=== PATIENT | male | born 1940 | race Caucasian/White ===

== ENCOUNTER 2016-08-10 07:32 | Observation (INO) | payer OTHER ==
[~2016-08-10] VITALS: Ht 182.9 cm; Wt 99.7 kg
[~2016-08-10 07:32] MED LIST: ADVAIR HFA120 INHALA IH; ALEVE PM CAPLE1 EACH PO; ALPRAZOLAM0.5 MG PO; AMLODIPINE BESYL5 MG PO; ASPIR-LOW81 MG PO; ASPIRIN81 M1 PO; ATORVASTATIN CA80 MG PO; Advair HFA 115/21 IH; CEFDINIR300 MG PO; CLOPIDOGREL75 MG PO; COLCRYS0.6 MG PO; Ceftin PO; Colchicine,Colcrys PO; DUONEB 2.5-0.5 M3 ML AEROSOL; DuoNeb IH; Ecotrin PO; FLONASE16 G1 BOTH NARES; FUROSEMIDE40 MG PO; LASIX40 MG PO; LEVAQUIN750 MG PO; LEVOFLOXACIN750 MG PO; LISINOPRIL40 MG PO; LO-DOSE ASPIRIN81 M1 PO; LOPRESSOR50 MG PO; Lasix PO; Lopressor PO; METOPROLOL TART50 MG PO; Micro-K,K-Tab,K-Dur, PO; NASAL SPRAY BOTH NARES; NORVASC10 MG PO; Omnicef PO; PHENERGAN-CODE120 ML PO; PREDNISONE PO; PREDNISONE10 MG PO; PREDNISONE20 MG PO; PREDNISONE50 MG PO; PROAIR HFA8.5 GM IH; Procardia XL,Adalat PO; Proventil,Ventolin H IH; Robitussin AC,Tussi- PO; SPIRIVA RESPIMAT4 GM IH; SPIRIVA1 INHALATI IH; SPIRONOLACTONE25 MG PO; Toprol XL PO; Ultram PO; VENTOLIN HFA18 GM IH; Xanax PO; ZESTRIL40 MG PO; ZITHROMAX Z-PA250 MG PO; ZITHROMAX250 MG PO; ZOLPIDEM TARTRAT5 MG PO; ZYLOPRIM100 MG PO; Zestril,Prinivil PO; Zithromax PO; predniSONE PO
[2016-08-10 08:18] LABS: HEMATOCRIT 37.2 % (38.0-50.0); MCH 28.6 PG (29.0-34.0); MCHC 31.7 G/DL (30.0-36.0); MCV 90.3 FL (86-99); MEAN PLAT.VOLUME 10.4 uM^3 (9.0-12.4); PLATELET COUNT 220 K/uL (156-360); RBC DIS.WIDTH-CV 16.6 % (11.8-14.6); RED BLOOD COUNT 4.12 M/uL (4.00-5.50); WHITE BLOOD COUNT 7.5 K/uL (4.1-10.2)
[2016-08-10 08:40] LABS: ANION GAP 12 MEQ/L (2-14); CHLORIDE 104 MEQ/L (99-109); EOSINOPHIL (%) 1.3 % (0-5); EOSINOPHIL COUNT 0.1 K/uL (0-0.3); IMMATURE GRANULOCYTE (%) 0.1 % (0.0-0.7); IMMATURE GRANULOCYTE COUNT 0.1 K/uL; LYMPHOCYTE COUNT 1.8 K/uL (1.0-2.8); MONOCYTE (%) 10.5 % (3-12); MONOCYTE COUNT 0.8 K/uL (0-0.8); NEUTROPHIL (%) 63.8 % (45-76); NEUTROPHIL COUNT 4.8 K/uL (1.8-6.4); POTASSIUM 3.8 MEQ/L (3.7-5.4); SAMPLE HEMOLYSIS CHECK 0; SAMPLE ICTERIC CHECK 0; SAMPLE LIPEMIA CHECK 0; SODIUM 139 MEQ/L (136-147)
[2016-08-10 08:42] LABS: TROP-I INTERPRETATION NEGATIVE; TROPONIN-I 0.01 ng/mL (0.0-0.30)
[2016-08-10 08:45] LABS: GFR ESTIMATE (CALCULATED) > 59 mL/min/; GLUCOSE 130 mg/dL (70-99); UREA NITROGEN (BUN) 23 mg/dL (9-23)
[2016-08-10 10:33] LABS: ADD MIUA? NO; BILIRUBIN SMALL; BLOOD NEGATIVE; COLOR DK YELLOW ((YELLOW)); GLUCOSE (STRIP) NEGATIVE; KETONES NEGATIVE; LEUKOCYTES NEGATIVE; NITRITE NEGATIVE; PROTEIN (STRIP) 30; SPECIFIC GRAVITY 1.028 (1.000-1.030)
[2016-08-10] MEDS ORDERED: DIGOX125 MCG PO (12:15)
[2016-08-10] MEDS ORDERED: LASIX40 MG PO (12:16)
[2016-08-10] MEDS ORDERED: HYDROCHLOROTHIA25 MG PO (12:16)
[2016-08-10] MEDS ORDERED: ELIQUIS5 MG PO (12:17)
[2016-08-10 16:20] LABS: CREATINE KINASE 35 IU/L (1-294); TOTAL CK 35 IU/L (1-294)
[2016-08-10 16:23] LABS: TROP-I INTERPRETATION NEGATIVE; TROPONIN-I < 0.01 ng/mL (0.0-0.30)
[2016-08-10 16:28] LABS: CK-MB 1.3 ng/mL (0.0-4.9)
[2016-08-10 16:29] VITALS: BP 197/84
[2016-08-10 21:00] VITALS: BP 160/73
[2016-08-10 21:20] LABS: TROP-I INTERPRETATION NEGATIVE; TROPONIN-I < 0.01 ng/mL (0.0-0.30)
[2016-08-11 00:34] VITALS: BP 181/72
[2016-08-11 02:40] VITALS: BP 130/60
[2016-08-11 08:19] VITALS: BP 160/68
[2016-08-11 12:09] VITALS: BP 140/72
[2016-08-11] MEDS ORDERED: NITROSTAT0.4 MG SL (13:50)
== END 2016-08-11 14:27 | disposition home or self-care (01) ==
LOC: EME 07:32 → EXP 07:32 → 5WEST 14:35 → EDOF 14:35 → 5WEST 15:56
PROVIDERS: Internal Medicine; Physician Assistant
DX: R07.9 Chest pain, unspecified (principal); R06.02 Shortness of breath; I25.10 Atherosclerotic heart disease of native coronary artery without angina pectoris; I25.2 Old myocardial infarction; I11.0 Hypertensive heart disease with heart failure; I50.32 Chronic diastolic (congestive) heart failure; E78.5 Hyperlipidemia, unspecified; I48.91 Unspecified atrial fibrillation; I27.81 Cor pulmonale (chronic); J44.9 Chronic obstructive pulmonary disease, unspecified; D64.9 Anemia, unspecified; Z87.19 Personal history of other diseases of the digestive system; Z85.819 Personal history of malignant neoplasm of unspecified site of lip, oral cavity, and pharynx; Z79.01 Long term (current) use of anticoagulants
CPT/HCPCS: 71010; 80048; 81003; 82550 91; 82553; 84484; 85025; 93005; 94640; 94640 76; 94760; 94799; 99202; 99281; 99285; G0378; J1940; J2930; J7040

== ENCOUNTER 2016-09-19 22:49 | Observation (INO) | payer OTHER ==
[~2016-09-19] VITALS: Ht 182.9 cm; Wt 100.7 kg
[~2016-09-19 22:49] MED LIST changes: +DIGOX125 MCG PO; +ELIQUIS5 MG PO; +HYDROCHLOROTHIA25 MG PO; +NITROSTAT0.4 MG SL
[2016-09-19 23:12] LABS: HEMATOCRIT 34.7 % (38.0-50.0); MCH 27.1 PG (29.0-34.0); MCHC 31.1 G/DL (30.0-36.0); PLATELET COUNT 178 K/uL (156-360); RBC DIS.WIDTH-CV 16.7 % (11.8-14.6); RBC DIS.WIDTH-SD 51.5 % (39-53); RED BLOOD COUNT 3.99 M/uL (4.00-5.50); WHITE BLOOD COUNT 7.3 K/uL (4.1-10.2)
[2016-09-19 23:20] LABS: CHLORIDE 106 mEq/L (99-109); POTASSIUM 3.5 mEq/L (3.7-5.4); SODIUM 142 mEq/L (136-147)
[2016-09-19 23:21] LABS: INTER. NORMALIZED RATIO 1.2; PROTHROMBIN TIME 12.3 (9.2-11.2); PTT 31.1 (25-32)
[2016-09-19 23:22] LABS: GLUCOSE 152 mg/dL (70-99)
[2016-09-19 23:23] LABS: ANION GAP 11 MEQ/L (2-14)
[2016-09-19 23:25] LABS: GFR ESTIMATE (CALCULATED) > 59 mL/min/
[2016-09-19 23:26] LABS: UREA NITROGEN (BUN) 18 mg/dL (9-23)
[2016-09-19 23:33] LABS: TROP-I INTERPRETATION NEGATIVE; TROPONIN-I 0.03 ng/mL (0.0-0.30)
[2016-09-20] MEDS ORDERED: SERTRALINE HCL25 MG PO (01:09)
[2016-09-20] MEDS ORDERED: AFRIN,GENASAL D15 ML BOTH NARES (01:12)
[2016-09-20 02:01] VITALS: BP 190/106
[2016-09-20 04:46] VITALS: BP 190/86
[2016-09-20 05:12] LABS: TROP-I INTERPRETATION NEGATIVE; TROPONIN-I 0.02 ng/mL (0.0-0.30)
[2016-09-20 08:20] VITALS: BP 162/72
[2016-09-20 11:31] VITALS: BP 186/80
[2016-09-20 11:50] LABS: TROP-I INTERPRETATION NEGATIVE; TROPONIN-I < 0.01 ng/mL (0.0-0.30)
[2016-09-20 17:00] VITALS: BP 182/64
[2016-09-20 20:00] VITALS: BP 198/95
[2016-09-21] VITALS: BP 187/80
[2016-09-21 07:28] LABS: ANION GAP 10 MEQ/L (2-14); CHLORIDE 100 MEQ/L (99-109); GFR ESTIMATE (CALCULATED) > 59 mL/min/; GLUCOSE 125 mg/dL (70-99); POTASSIUM 3.2 MEQ/L (3.7-5.4); SAMPLE HEMOLYSIS CHECK 0; SAMPLE ICTERIC CHECK 0; SAMPLE LIPEMIA CHECK 0; SODIUM 139 MEQ/L (136-147); UREA NITROGEN (BUN) 25 mg/dL (9-23)
[2016-09-21 07:29] LABS: EOSINOPHIL (%) 0 % (0-5); HEMATOCRIT 33.8 % (38.0-50.0); IMMATURE GRANULOCYTE (%) 0.3 % (0.0-0.7); IMMATURE GRANULOCYTE COUNT 0.1 K/uL; LYMPHOCYTE COUNT 1.3 K/uL (1.0-2.8); MCH 25.8 PG (29.0-34.0); MCHC 30.5 G/DL (30.0-36.0); MCV 84.5 FL (86-99); MEAN PLAT.VOLUME 10.6 uM^3 (9.0-12.4); MONOCYTE (%) 6.3 % (3-12); NEUTROPHIL (%) 84.9 % (45-76); NEUTROPHIL COUNT 13.4 K/uL (1.8-6.4); PLATELET COUNT 211 K/uL (156-360); RBC DIS.WIDTH-CV 17.1 % (11.8-14.6); RBC DIS.WIDTH-SD 52.3 % (39-53)
[2016-09-21 07:38] LABS: WHITE BLOOD COUNT 15.8 K/uL (4.1-10.2)
[2016-09-21 08:15] VITALS: BP 162/72
[2016-09-21] MEDS ORDERED: PANTOPRAZOLE SO40 MG PO (08:50)
[2016-09-21] MEDS ORDERED: HYDROCHLOROTHIA25 MG PO (08:50)
[2016-09-21] MEDS ORDERED: CEFTIN500 MG PO (08:50)
[2016-09-21] MEDS ORDERED: PREDNISONE20 MG PO (08:50)
[2016-09-21] MEDS ORDERED: AZITHROMYCIN500 M1 PO (08:50)
[2016-09-21] MEDS ORDERED: APRESOLINE100 MG PO (08:50)
[2016-09-21] MEDS ORDERED: AMLODIPINE BESY10 MG PO (08:50)
== END 2016-09-21 10:07 | disposition home or self-care (01) ==
LOC: EME 22:49 → EDOF 09-20 00:11 → 5WEST 09-20 00:11 → EDOF 09-20 00:11 → 5WEST 09-20 01:40
PROVIDERS: Emergency Medicine; Internal Medicine; Physician Assistant
DX: R07.9 Chest pain, unspecified (principal); J44.1 Chronic obstructive pulmonary disease with (acute) exacerbation; I11.0 Hypertensive heart disease with heart failure; I50.33 Acute on chronic diastolic (congestive) heart failure; I27.2 Other secondary pulmonary hypertension; I08.1 Rheumatic disorders of both mitral and tricuspid valves; I48.2 Chronic atrial fibrillation; I25.2 Old myocardial infarction; E78.5 Hyperlipidemia, unspecified; M10.9 Gout, unspecified; Z85.810 Personal history of malignant neoplasm of tongue; F41.9 Anxiety disorder, unspecified; F32.9 Major depressive disorder, single episode, unspecified; F17.200 Nicotine dependence, unspecified, uncomplicated
CPT/HCPCS: 71010; 71250; 80048; 83880; 84484; 85025; 85027; 85610; 85730; 93005; 94640; 94640 76; 94644; 94799; 99202; 99281; 99285; G0378; J0360; J0696; J1940; J2270; J2930; J7050; J7512

== ENCOUNTER 2016-12-05 14:39 | Emergency (ER) | payer OTHER ==
[~2016-12-05] VITALS: Ht 182.9 cm; Wt 98.8 kg
[~2016-12-05 14:39] MED LIST changes: +AFRIN,GENASAL D15 ML BOTH NARES; +AMLODIPINE BESY10 MG PO; +APRESOLINE100 MG PO; +AZITHROMYCIN500 M1 PO; +CEFTIN500 MG PO; +PANTOPRAZOLE SO40 MG PO; +SERTRALINE HCL25 MG PO
[2016-12-05 15:33] LABS: HEMATOCRIT 34.8 % (38.0-50.0); MCHC 29.9 G/DL (30.0-36.0); MCV 80.2 FL (86-99); MEAN PLAT.VOLUME 9.5 uM^3 (9.0-12.4); PLATELET COUNT 341 K/uL (156-360); RBC DIS.WIDTH-CV 18.1 % (11.8-14.6); RBC DIS.WIDTH-SD 52.4 % (39-53); RED BLOOD COUNT 4.34 M/uL (4.00-5.50)
[2016-12-05 15:40] LABS: ADD MIUA? NO; BILIRUBIN NEGATIVE; BLOOD NEGATIVE; COLOR YELLOW ((YELLOW)); GLUCOSE (STRIP) NEGATIVE; KETONES NEGATIVE; LEUKOCYTES NEGATIVE; NITRITE NEGATIVE; PROTEIN (STRIP) NEGATIVE; SPECIFIC GRAVITY 1.013 (1.000-1.030); UROBILINOGEN 0.2 MG/DL (0.2-1.0)
[2016-12-05 15:46] LABS: CHLORIDE 103 mEq/L (99-109); POTASSIUM 3.8 mEq/L (3.7-5.4); SODIUM 140 mEq/L (136-147)
[2016-12-05 15:48] LABS: GLUCOSE 111 mg/dL (70-99)
[2016-12-05 15:49] LABS: ANION GAP 10 MEQ/L (2-14)
[2016-12-05 15:50] LABS: TOTAL BILIRUBIN 0.4 mg/dL (0.0-1.0)
[2016-12-05 15:52] LABS: ALKALINE PHOSPHATASE 88 IU/L (3-129); GFR ESTIMATE (CALCULATED) > 59 mL/min/
[2016-12-05 15:53] LABS: UREA NITROGEN (BUN) 19 mg/dL (9-23)
[2016-12-05 15:54] LABS: TROP-I INTERPRETATION NEGATIVE; TROPONIN-I < 0.01 ng/mL (0.0-0.30)
[2016-12-05 16:18] VITALS: BP 151/54
== END 2016-12-05 16:19 | disposition left against medical advice (07) ==
LOC: EXP 14:39 → EME 14:39 → EXP 16:19
PROVIDERS: Nurse Practitioner Family
DX: R07.9 Chest pain, unspecified (principal); I25.2 Old myocardial infarction; I10 Essential (primary) hypertension; K21.9 Gastro-esophageal reflux disease without esophagitis; F17.200 Nicotine dependence, unspecified, uncomplicated
CPT/HCPCS: 71010; 74000; 80053; 81003; 84484; 85027; 93005; 99281; 99284

== ENCOUNTER 2017-02-22 12:40 | Emergency (ER) | payer OTHER ==
[~2017-02-22] VITALS: Ht 182.9 cm; Wt 96.3 kg
[2017-02-22 15:49] VITALS: BP 153/72
== END 2017-02-22 15:52 | disposition home or self-care (01) ==
LOC: EME 12:40
DX: S51.811A Laceration without foreign body of right forearm, initial encounter (principal); M54.5 Low back pain; M54.2 Cervicalgia; V49.40XA Driver injured in collision with unspecified motor vehicles in traffic accident, initial encounter; K21.9 Gastro-esophageal reflux disease without esophagitis; J44.9 Chronic obstructive pulmonary disease, unspecified; I10 Essential (primary) hypertension; I25.2 Old myocardial infarction; Z79.82 Long term (current) use of aspirin; Z85.72 Personal history of non-Hodgkin lymphomas; Z72.0 Tobacco use
CPT/HCPCS: 70450; 72125; 72128; 99281; 99284

== ENCOUNTER 2017-02-26 13:29 | Emergency (ER) | payer OTHER ==
[~2017-02-26] VITALS: Ht 182.9 cm; Wt 96.8 kg
[2017-02-26] MEDS ORDERED: VALIUM2 MG PO (14:05)
[2017-02-26] MEDS ORDERED: INDOCIN50 MG PO (14:05)
[2017-02-26 14:35] VITALS: BP 157/74
== END 2017-02-26 14:36 | disposition home or self-care (01) ==
LOC: EME 13:29
DX: M54.6 Pain in thoracic spine (principal); M62.838 Other muscle spasm; V49.40XD Driver injured in collision with unspecified motor vehicles in traffic accident, subsequent encounter; I10 Essential (primary) hypertension; I25.2 Old myocardial infarction; F17.200 Nicotine dependence, unspecified, uncomplicated
CPT/HCPCS: 99281; 99284

== ENCOUNTER 2017-03-13 14:53 | Emergency (ER) | payer OTHER ==
[~2017-03-13] VITALS: Ht 182.9 cm; Wt 97.4 kg
[~2017-03-13 14:53] MED LIST changes: +INDOCIN50 MG PO; +VALIUM2 MG PO
[2017-03-13] MEDS ORDERED: LIDODERM 5% P1 PATCH TD (17:24)
[2017-03-13] MEDS ORDERED: MOTRIN800 MG PO (17:24)
[2017-03-13] MEDS ORDERED: NORCO 5/3251 TABLET PO (17:24)
[2017-03-13] MEDS ORDERED: PREDNISONE20 MG PO (17:24)
[2017-03-13] MEDS ORDERED: VALIUM5 MG PO (17:24)
[2017-03-13 17:36] VITALS: BP 186/58
== END 2017-03-13 17:37 | disposition home or self-care (01) ==
LOC: EME 14:53
DX: M54.14 Radiculopathy, thoracic region (principal); V99.XXXD Unspecified transport accident, subsequent encounter; J44.9 Chronic obstructive pulmonary disease, unspecified; I10 Essential (primary) hypertension; K21.9 Gastro-esophageal reflux disease without esophagitis; I25.2 Old myocardial infarction; Z85.72 Personal history of non-Hodgkin lymphomas; Z72.0 Tobacco use; Z79.82 Long term (current) use of aspirin
CPT/HCPCS: 99281; 99284; J1885; J7512

== ENCOUNTER 2017-03-16 17:55 | Emergency (ER) | payer OTHER ==
[~2017-03-16] VITALS: Ht 177.8 cm; Wt 98.5 kg
[~2017-03-16 17:55] MED LIST changes: +LIDODERM 5% P1 PATCH TD; +MOTRIN800 MG PO; +NORCO 5/3251 TABLET PO; +VALIUM5 MG PO
[2017-03-16] MEDS ORDERED: LIDODERM 5% P1 PATCH TD (20:53)
[2017-03-16 22:14] VITALS: BP 129/47
== END 2017-03-16 22:07 | disposition home or self-care (01) ==
LOC: RME 17:55 → EME 17:55 → RME 22:07
DX: M54.14 Radiculopathy, thoracic region (principal); M62.830 Muscle spasm of back; V89.2XXD Person injured in unspecified motor-vehicle accident, traffic, subsequent encounter; I10 Essential (primary) hypertension; I25.2 Old myocardial infarction; Z79.82 Long term (current) use of aspirin; F17.200 Nicotine dependence, unspecified, uncomplicated; Z85.72 Personal history of non-Hodgkin lymphomas
CPT/HCPCS: 99281; 99284; J1885

== ENCOUNTER 2017-04-27 09:24 | Inpatient (IN) | payer OTHER ==
[2017-04-27] VITALS (12 sets, daily range): BP systolic 111–151; BP diastolic 42–74
[~2017-04-27] VITALS: Ht 162.6 cm; Wt 60.8 kg
[2017-04-27 10:53] LABS: EOSINOPHIL (%) 0.1 % (0-5); IMMATURE GRANULOCYTE (%) 0.6 % (0.0-0.7); IMMATURE GRANULOCYTE COUNT 0.1 K/uL; INSTRUMENT ABS NEUTROPHIL CT 6.1 K/uL; LYMPHOCYTE COUNT 1.7 K/uL (1.0-2.8); MCH 18.7 PG (29.0-34.0); MCHC 26.3 G/DL (30.0-36.0); MCV 71.2 FL (86-99); MEAN PLAT.VOLUME 9.5 uM^3 (9.0-12.4); MONOCYTE (%) 7.8 % (3-12); MONOCYTE COUNT 0.7 K/uL (0-0.8); NEUTROPHIL (%) 71.9 % (45-76); NEUTROPHIL COUNT 6.1 K/uL (1.8-6.4); NRBC (%) 0.2 /100 WBC (0-0); PLATELET COUNT 240 K/uL (156-360); RBC DIS.WIDTH-CV 19.1 % (11.8-14.6); RBC DIS.WIDTH-SD 49.1 % (39-53); RED BLOOD COUNT 2.67 M/uL (4.00-5.50); WHITE BLOOD COUNT 8.5 K/uL (4.1-10.2)
[2017-04-27 10:54] LABS: INTER. NORMALIZED RATIO 1.3; PROTHROMBIN TIME 14.9 SEC (10.2-12.9)
[2017-04-27 10:57] LABS: PTT 28.7 SEC (25-37)
[2017-04-27 10:59] LABS: CHLORIDE 105 mEq/L (99-109); POTASSIUM 3.9 mEq/L (3.7-5.4); SODIUM 143 mEq/L (136-147)
[2017-04-27 11:00] LABS: GLUCOSE 112 mg/dL (70-99)
[2017-04-27 11:02] LABS: ANION GAP 12 MEQ/L (2-14)
[2017-04-27 11:04] LABS: GFR ESTIMATE (CALCULATED) 39 mL/min/
[2017-04-27 11:05] LABS: UREA NITROGEN (BUN) 29 mg/dL (9-23)
[2017-04-27 11:29] LABS: TROP-I INTERPRETATION NEGATIVE; TROPONIN-I < 0.01 ng/mL (0.0-0.30)
[2017-04-27] MEDS ORDERED: INDOMETHACIN50 MG PO (12:29)
[2017-04-27] MEDS ORDERED: ALEVE PM CAPLE1 EACH PO (12:29)
[2017-04-27] MEDS ORDERED: ENDOCET 5-3251 EACH PO (12:31)
[2017-04-27] MEDS ORDERED: GABAPENTIN800 MG PO (12:31)
[2017-04-27] MEDS ORDERED: MELOXICAM15 MG PO (12:31)
[2017-04-27] MEDS ORDERED: DUONEB 2.5-0.5 M3 ML AEROSOL (12:31)
[2017-04-27] MEDS ORDERED: VALSARTAN-HCTZ1 EAC3 PO (12:32)
[2017-04-27] MEDS ORDERED: DIGOX125 MCG PO (12:32)
[2017-04-27] MEDS ORDERED: PROAIR HFA8.5 GM IH (12:32)
[2017-04-27 19:52] LABS: IRON 16 MCG/DL (35-150)
[2017-04-27 20:30] LABS: FERRITIN 6 NG/ML (22-322)
[2017-04-28] VITALS (18 sets, daily range): BP systolic 130–171; BP diastolic 58–78
[2017-04-28 00:56] LABS: HEMATOCRIT 22.3 % (38.0-50.0); MCV 74.1 FL (86-99)
[2017-04-28 07:44] LABS: HEMATOCRIT 23.9 % (38.0-50.0); MCV 76.4 FL (86-99)
[2017-04-28 08:09] LABS: ALKALINE PHOSPHATASE 78 IU/L (3-129); ANION GAP 8 MEQ/L (2-14); CHLORIDE 107 MEQ/L (99-109); GFR ESTIMATE (CALCULATED) 52 mL/min/; GLUCOSE 93 mg/dL (70-99); SAMPLE HEMOLYSIS CHECK 0; SAMPLE ICTERIC CHECK 0; SAMPLE LIPEMIA CHECK 0; SODIUM 140 MEQ/L (136-147); TOTAL BILIRUBIN 1.3 MG/DL (0.0-1.0); UREA NITROGEN (BUN) 22 mg/dL (9-23)
[2017-04-28 09:18] LABS: POC NON-PRINT COM 1 ND
[2017-04-28 13:57] LABS: HEMATOCRIT 27.8 % (38.0-50.0); MCV 77.2 FL (86-99)
[2017-04-28 18:36] LABS: HEMATOCRIT 28.7 % (38.0-50.0); MCV 78.4 FL (86-99)
[2017-04-29 05:18] LABS: HEMATOCRIT 29.2 % (38.0-50.0); MCV 79.1 FL (86-99); MEAN PLAT.VOLUME 10.3 uM^3 (9.0-12.4); NRBC (%) 0.2 /100 WBC (0-0); PLATELET COUNT 176 K/uL (156-360); RBC DIS.WIDTH-CV 20.4 % (11.8-14.6); RBC DIS.WIDTH-SD 58.5 % (39-53); WHITE BLOOD COUNT 8.1 K/uL (4.1-10.2)
[2017-04-29 05:52] LABS: ANION GAP 7 MEQ/L (2-14); CHLORIDE 104 MEQ/L (99-109); GFR ESTIMATE (CALCULATED) > 59 mL/min/; GLUCOSE 110 mg/dL (70-99); POTASSIUM 4.3 MEQ/L (3.7-5.4); SAMPLE HEMOLYSIS CHECK 0; SAMPLE ICTERIC CHECK 0; SAMPLE LIPEMIA CHECK 0; SODIUM 136 MEQ/L (136-147); UREA NITROGEN (BUN) 16 mg/dL (9-23)
[2017-04-29 06:03] LABS: MCH 25.2 PG (29.0-34.0); MCHC 31.8 G/DL (30.0-36.0); RED BLOOD COUNT 3.69 M/uL (4.00-5.50)
[2017-04-29 06:18] LABS: EOSINOPHIL (%) 0.4 % (0-5); IMMATURE GRANULOCYTE (%) 0.5 % (0.0-0.7); INSTRUMENT ABS NEUTROPHIL CT 6.4 K/uL; LYMPHOCYTE COUNT 0.9 K/uL (1.0-2.8); MONOCYTE (%) 9.3 % (3-12); MONOCYTE COUNT 0.8 K/uL (0-0.8); NEUTROPHIL (%) 78.6 % (45-76); NEUTROPHIL COUNT 6.4 K/uL (1.8-6.4)
[2017-04-29 09:08] VITALS: BP 168/69
[2017-04-29 12:13] VITALS: BP 130/60
[2017-04-29 15:27] VITALS: BP 142/60
[2017-04-29 19:30] VITALS: BP 152/64
[2017-04-29 23:47] VITALS: BP 143/60
[2017-04-30 04:22] VITALS: BP 142/62
[2017-04-30 05:48] LABS: EOSINOPHIL (%) 0.8 % (0-5); HEMATOCRIT 28.5 % (38.0-50.0); IMMATURE GRANULOCYTE (%) 0.4 % (0.0-0.7); INSTRUMENT ABS NEUTROPHIL CT 3.2 K/uL; LYMPHOCYTE COUNT 1.4 K/uL (1.0-2.8); MCHC 30.9 G/DL (30.0-36.0); MEAN PLAT.VOLUME 10.1 uM^3 (9.0-12.4); MONOCYTE (%) 12.4 % (3-12); MONOCYTE COUNT 0.7 K/uL (0-0.8); NEUTROPHIL (%) 60.8 % (45-76); NEUTROPHIL COUNT 3.2 K/uL (1.8-6.4); NRBC (%) 0.4 /100 WBC (0-0); PLATELET COUNT 159 K/uL (156-360); RBC DIS.WIDTH-CV 21.2 % (11.8-14.6); RBC DIS.WIDTH-SD 61.8 % (39-53); RED BLOOD COUNT 3.52 M/uL (4.00-5.50); WHITE BLOOD COUNT 5.3 K/uL (4.1-10.2)
[2017-04-30 07:49] VITALS: BP 142/58
[2017-04-30 13:58] VITALS: BP 120/57
[2017-04-30 15:44] VITALS: BP 138/66
[2017-04-30 19:40] VITALS: BP 158/62
[2017-04-30 23:40] VITALS: BP 156/60
[2017-05-01 04:43] VITALS: BP 135/62
[2017-05-01 05:23] LABS: EOSINOPHIL (%) 0.7 % (0-5); HEMATOCRIT 29.5 % (38.0-50.0); IMMATURE GRANULOCYTE (%) 0.3 % (0.0-0.7); INSTRUMENT ABS NEUTROPHIL CT 3.8 K/uL; LYMPHOCYTE COUNT 1.4 K/uL (1.0-2.8); MCH 25.3 PG (29.0-34.0); MCHC 30.8 G/DL (30.0-36.0); MCV 81.9 FL (86-99); MEAN PLAT.VOLUME 10.6 uM^3 (9.0-12.4); MONOCYTE (%) 12.2 % (3-12); MONOCYTE COUNT 0.7 K/uL (0-0.8); NEUTROPHIL (%) 63.6 % (45-76); NEUTROPHIL COUNT 3.8 K/uL (1.8-6.4); PLATELET COUNT 171 K/uL (156-360); RBC DIS.WIDTH-CV 22.4 % (11.8-14.6); RBC DIS.WIDTH-SD 65.5 % (39-53); WHITE BLOOD COUNT 5.9 K/uL (4.1-10.2)
[2017-05-01 05:46] LABS: ANION GAP 8 MEQ/L (2-14); CHLORIDE 109 MEQ/L (99-109); GFR ESTIMATE (CALCULATED) > 59 mL/min/; GLUCOSE 90 mg/dL (70-99); SAMPLE HEMOLYSIS CHECK 0; SAMPLE ICTERIC CHECK 0; SAMPLE LIPEMIA CHECK 0; SODIUM 141 MEQ/L (136-147); UREA NITROGEN (BUN) 12 mg/dL (9-23)
[2017-05-01 07:59] VITALS: BP 170/66
[2017-05-01 11:46] VITALS: BP 158/60
[2017-05-01 15:50] VITALS: BP 150/62
[2017-05-01 20:18] VITALS: BP 138/66
[2017-05-01 23:34] VITALS: BP 161/84
[2017-05-02 04:42] VITALS: BP 136/78
[2017-05-02 05:30] LABS: HEMATOCRIT 30.5 % (38.0-50.0); MCH 25.1 PG (29.0-34.0); MCHC 30.5 G/DL (30.0-36.0); MCV 82.4 FL (86-99); PLATELET COUNT 176 K/uL (156-360); RBC DIS.WIDTH-CV 23.1 % (11.8-14.6); RBC DIS.WIDTH-SD 68.1 % (39-53); WHITE BLOOD COUNT 7.4 K/uL (4.1-10.2)
[2017-05-02 07:37] VITALS: BP 172/68
[2017-05-02 11:25] VITALS: BP 156/70
[2017-05-02 15:36] VITALS: BP 156/58
[2017-05-02 19:24] VITALS: BP 114/76
[2017-05-03 00:36] VITALS: BP 142/52
[2017-05-03 04:14] VITALS: BP 156/60
[2017-05-03 07:05] VITALS: BP 148/52
[2017-05-03 12:27] VITALS: BP 162/72
[2017-05-03 15:40] VITALS: BP 160/62
[2017-05-03 19:59] VITALS: BP 168/71
[2017-05-04 00:29] VITALS: BP 155/70
[2017-05-04 04:45] VITALS: BP 150/70
[2017-05-04 05:04] LABS: HEMATOCRIT 32.2 % (38.0-50.0); MCH 24.2 PG (29.0-34.0); MCHC 29.8 G/DL (30.0-36.0); MCV 81.1 FL (86-99); MEAN PLAT.VOLUME 10.5 uM^3 (9.0-12.4); PLATELET COUNT 189 K/uL (156-360); RBC DIS.WIDTH-CV 23.3 % (11.8-14.6); RBC DIS.WIDTH-SD 67.8 % (39-53); RED BLOOD COUNT 3.97 M/uL (4.00-5.50); WHITE BLOOD COUNT 15.6 K/uL (4.1-10.2)
[2017-05-04 05:23] LABS: CHLORIDE 107 mEq/L (99-109); POTASSIUM 4.3 mEq/L (3.7-5.4); SODIUM 137 mEq/L (136-147)
[2017-05-04 05:25] LABS: GLUCOSE 118 mg/dL (70-99)
[2017-05-04 05:26] LABS: ANION GAP 9 MEQ/L (2-14)
[2017-05-04 05:29] LABS: GFR ESTIMATE (CALCULATED) 57 mL/min/
[2017-05-04 05:31] LABS: UREA NITROGEN (BUN) 27 mg/dL (9-23)
[2017-05-04 07:54] VITALS: BP 124/52
[2017-05-04 11:55] VITALS: BP 122/54
[2017-05-04 16:00] VITALS: BP 148/60
[2017-05-04] MEDS ORDERED: AZITHROMYCIN500 M1 PO (16:30)
[2017-05-04] MEDS ORDERED: FERROUS SULFAT325 MG PO (16:30)
[2017-05-04] MEDS ORDERED: Lidoderm 5% Patch TD (16:31)
[2017-05-04] MEDS ORDERED: PANTOPRAZOLE SO40 MG PO (16:31)
[2017-05-04] MEDS ORDERED: ENDOCET 5-3251 EACH PO (16:34)
[2017-05-04] MEDS ORDERED: PREDNISONE20 MG PO (16:34)
== END 2017-05-04 20:37 | DRG 378 ==
LOC: EME 09:24 → EDOF 11:49 → 4EAST 11:49 → ENRESERV 12:05 → 4EAST 14:06 → ENPENDDIS 05-04 19:00 → 4EAST 05-04 20:37
PROVIDERS: Emergency Medicine; Internal Medicine; Physician Assistant; Specialist
DX: K92.2 Gastrointestinal hemorrhage, unspecified (principal); D62 Acute posthemorrhagic anemia; R79.1 Abnormal coagulation profile; T45.515A Adverse effect of anticoagulants, initial encounter; N17.9 Acute kidney failure, unspecified; J44.0 Chronic obstructive pulmonary disease with (acute) lower respiratory infection; J20.9 Acute bronchitis, unspecified; K55.20 Angiodysplasia of colon without hemorrhage; K31.819 Angiodysplasia of stomach and duodenum without bleeding; K21.9 Gastro-esophageal reflux disease without esophagitis; K52.9 Noninfective gastroenteritis and colitis, unspecified; I11.0 Hypertensive heart disease with heart failure; I50.32 Chronic diastolic (congestive) heart failure; M10.9 Gout, unspecified; I48.2 Chronic atrial fibrillation; E78.5 Hyperlipidemia, unspecified; I25.10 Atherosclerotic heart disease of native coronary artery without angina pectoris; C85.90 Non-Hodgkin lymphoma, unspecified, unspecified site; F17.200 Nicotine dependence, unspecified, uncomplicated; I27.81 Cor pulmonale (chronic); D50.9 Iron deficiency anemia, unspecified; F32.9 Major depressive disorder, single episode, unspecified; F41.9 Anxiety disorder, unspecified; G89.29 Other chronic pain; M54.5 Low back pain; E66.9 Obesity, unspecified; K26.9 Duodenal ulcer, unspecified as acute or chronic, without hemorrhage or perforation; K29.70 Gastritis, unspecified, without bleeding; K64.8 Other hemorrhoids; K57.30 Diverticulosis of large intestine without perforation or abscess without bleeding; Z79.01 Long term (current) use of anticoagulants; I25.2 Old myocardial infarction; Z85.810 Personal history of malignant neoplasm of tongue; Z90.49 Acquired absence of other specified parts of digestive tract; Z95.0 Presence of cardiac pacemaker; Z79.891 Long term (current) use of opiate analgesic; Z79.82 Long term (current) use of aspirin; Z68.26 Body mass index [BMI] 26.0-26.9, adult
CPT/HCPCS: 71010; 71020; 74176; 74250; 80048; 80053; 82272; 82728; 83516 90; 83540; 84466; 84484; 85014; 85018; 85025; 85027; 85610; 85730; 86850; 86900; 86901; 86920; 88305; 93005; 94640; 97530 GO; 97530 GP; 99202; 99281; 99285; C9113; J1940; J2270; J7050; J7512; P9016; P9017

== ENCOUNTER 2017-06-19 15:29 | Inpatient (IN) | payer OTHER ==
[~2017-06-19] VITALS: Ht 182.9 cm; Wt 89.3 kg
[~2017-06-19 15:29] MED LIST changes: +APRESOLINE25 MG PO; +ENDOCET 5-3251 EACH PO; +FERROUS SULFAT325 MG PO; +GABAPENTIN800 MG PO; +INDOMETHACIN50 MG PO; +LISINOPRIL5 MG PO; +Lidoderm 5% Patch TD; +MELOXICAM15 MG PO; +PROTONIX40 MG PO; +TYLENOL REGULA325 MG PO; +VALSARTAN-HCTZ1 EAC3 PO
[2017-06-19 16:53] LABS: HEMATOCRIT 34.1 % (38.0-50.0); MCH 27.6 PG (29.0-34.0); MCHC 30.5 G/DL (30.0-36.0); MCV 90.5 FL (86-99); MEAN PLAT.VOLUME 9.3 uM^3 (9.0-12.4); PLATELET COUNT 197 K/uL (156-360); RBC DIS.WIDTH-CV 20.9 % (11.8-14.6); RBC DIS.WIDTH-SD 70.3 % (39-53); RED BLOOD COUNT 3.77 M/uL (4.00-5.50)
[2017-06-19 17:05] LABS: CHLORIDE 104 mEq/L (99-109); SODIUM 138 mEq/L (136-147)
[2017-06-19 17:08] LABS: GLUCOSE 153 mg/dL (70-99)
[2017-06-19 17:09] LABS: ANION GAP 14 MEQ/L (2-14)
[2017-06-19 17:10] LABS: TOTAL BILIRUBIN 0.5 mg/dL (0.0-1.0)
[2017-06-19 17:11] LABS: ALKALINE PHOSPHATASE 128 IU/L (3-129); GFR ESTIMATE (CALCULATED) 52 mL/min/
[2017-06-19 17:12] LABS: UREA NITROGEN (BUN) 19 mg/dL (9-23)
[2017-06-19 20:43] LABS: ADD MIUA? YES; BILIRUBIN NEGATIVE; BLOOD NEGATIVE; COLOR YELLOW ((YELLOW)); GLUCOSE (STRIP) NEGATIVE; KETONES NEGATIVE; LEUKOCYTES NEGATIVE; NITRITE NEGATIVE; PROTEIN (STRIP) 30; SPECIFIC GRAVITY 1.028 (1.000-1.030)
[2017-06-19 21:18] LABS: EPITHELIAL CELLS NONE SEEN /HPF; RED BLOOD CELLS RARE /HPF (0-5); WHITE BLOOD CELLS NONE SEEN /HPF (0-5)
[2017-06-19 21:19] LABS: BACTERIA RARE /HPF; CASTS PRESENT /LPF; CRYSTALS NONE SEEN; MUCUS RARE /LPF; UCUL ADDED? NO
[2017-06-19 22:26] LABS: C-REACTIVE PROTEIN 39.9 MG/L (0-10)
[2017-06-19 22:31] LABS: ERTH.SED.RATE 36 MM/HR (0-20)
[2017-06-19] MEDS ORDERED: MELOXICAM15 MG PO (22:42)
[2017-06-20 00:35] LABS: APPEARANCE HAZY/COLORLESS
[2017-06-20 00:42] LABS: RED CELL AREA COUNTED 0.4; RED CELL COUNT 475 /MM^3 (0-1); RED CELL DILUTION 1; WBC AREA COUNTED 0.4; WBC DILUTION 1; WHITE CELL COUNT 5750 /MM^3 (0-5); WHITE CELL RAW COUNT 230
[2017-06-20 01:07] LABS: CSF EOSINOPHILS 0 % (0-25); MONO RAW COUNT 7; MONONUCLEAR WBC'S 7 % (50-90); POLY RAW COUNT 93; POLYNUCLEAR WBC'S 93 % (0-3)
[2017-06-20 01:10] LABS: APPEARANCE (RECHECK) HAZY/COLORLESS; CSF TUBE NUMBER (RECHECK) TUBE #1; RED CELL AREA COUNTED 0.4; RED CELL COUNT (RECHECK) 825 /MM^3 (0-1); RED CELL DILUTION 1
[2017-06-20 03:34] VITALS: BP 172/74
[2017-06-20 03:38] LABS: AMPHETAMINE NEGATIVE (500 ng/mL); BARBITURATES NEGATIVE (200 ng/mL); BENZODIAZEPINES NEGATIVE (150 ng/mL); COCAINE NEGATIVE (150 ng/mL); INTERNAL CONTROLS VALID? YES; METHADONE NEGATIVE (200 ng/mL); METHAMPHETAMINE NEGATIVE (500 ng/mL); OPIATES (MORPHINE) NEGATIVE (100 ng/mL); OXYCODONE PRESUMPTIVE POSITIVE (100 ng/mL); PHENCYCLIDINE NEGATIVE (25 ng/mL); PROPOXYPHENE NEGATIVE (300 ng/mL); THC CANNABINOIDS NEGATIVE (50 ng/mL); TRICYCLIC ANTIDEPRESSANTS NEGATIVE (300 ng/mL)
[2017-06-20 05:05] VITALS: BP 150/68
[2017-06-20 06:47] LABS: GFR ESTIMATE (CALCULATED) > 59 mL/min/; UREA NITROGEN (BUN) 13 mg/dL (9-23)
[2017-06-20 07:13] VITALS: BP 142/75
[2017-06-20 08:13] LABS: HEMATOCRIT 28.4 % (38.0-50.0); MCH 26.8 PG (29.0-34.0); MCHC 29.9 G/DL (30.0-36.0); MCV 89.6 FL (86-99); MEAN PLAT.VOLUME 9.3 uM^3 (9.0-12.4); PLATELET COUNT 179 K/uL (156-360); RBC DIS.WIDTH-CV 20.8 % (11.8-14.6); RBC DIS.WIDTH-SD 69.4 % (39-53); RED BLOOD COUNT 3.17 M/uL (4.00-5.50); WHITE BLOOD COUNT 5.4 K/uL (4.1-10.2)
[2017-06-20 11:13] VITALS: BP 156/68
[2017-06-20 15:12] VITALS: BP 142/65
[2017-06-20 19:51] VITALS: BP 157/75
[2017-06-21 00:22] VITALS: BP 114/58
[2017-06-21 03:38] VITALS: BP 131/62
[2017-06-21 06:58] LABS: HEMATOCRIT 26.5 % (38.0-50.0); MCH 27.2 PG (29.0-34.0); MCHC 30.6 G/DL (30.0-36.0); MCV 88.9 FL (86-99); MEAN PLAT.VOLUME 9.4 uM^3 (9.0-12.4); PLATELET COUNT 182 K/uL (156-360); RBC DIS.WIDTH-CV 20.5 % (11.8-14.6); RBC DIS.WIDTH-SD 67.7 % (39-53); RED BLOOD COUNT 2.98 M/uL (4.00-5.50); WHITE BLOOD COUNT 8.7 K/uL (4.1-10.2)
[2017-06-21 07:26] LABS: ANION GAP 9 MEQ/L (2-14); CHLORIDE 111 MEQ/L (99-109); GFR ESTIMATE (CALCULATED) > 59 mL/min/; GLUCOSE 160 mg/dL (70-99); POTASSIUM 4.3 MEQ/L (3.7-5.4); SAMPLE HEMOLYSIS CHECK 0; SAMPLE ICTERIC CHECK 0; SAMPLE LIPEMIA CHECK 0; SODIUM 141 MEQ/L (136-147); UREA NITROGEN (BUN) 16 mg/dL (9-23)
[2017-06-21 08:07] VITALS: BP 169/74
[2017-06-21 11:40] VITALS: BP 160/70
[2017-06-21 15:54] VITALS: BP 162/76
[2017-06-22] VITALS: BP 147/68
[2017-06-22 06:28] LABS: HEMATOCRIT 25.6 % (38.0-50.0); MCHC 30.5 G/DL (30.0-36.0); MCV 88.6 FL (86-99); PLATELET COUNT 205 K/uL (156-360); RBC DIS.WIDTH-CV 20.7 % (11.8-14.6); RBC DIS.WIDTH-SD 66.8 % (39-53); RED BLOOD COUNT 2.89 M/uL (4.00-5.50); WHITE BLOOD COUNT 9.3 K/uL (4.1-10.2)
[2017-06-22 07:11] LABS: ANION GAP 8 MEQ/L (2-14); CHLORIDE 110 MEQ/L (99-109); GFR ESTIMATE (CALCULATED) > 59 mL/min/; GLUCOSE 157 mg/dL (70-99); POTASSIUM 4.6 MEQ/L (3.7-5.4); SAMPLE HEMOLYSIS CHECK 0; SAMPLE ICTERIC CHECK 0; SAMPLE LIPEMIA CHECK 0; SODIUM 140 MEQ/L (136-147); UREA NITROGEN (BUN) 17 mg/dL (9-23)
[2017-06-22 07:46] VITALS: BP 181/76
[2017-06-22 12:39] LABS: HEMATOCRIT 26.1 % (38.0-50.0); MCV 89.4 FL (86-99)
[2017-06-22 15:57] VITALS: BP 176/77
[2017-06-22 23:38] VITALS: BP 156/72
[2017-06-23 06:29] LABS: HEMATOCRIT 27.3 % (38.0-50.0); MCH 27.4 PG (29.0-34.0); MCHC 30.4 G/DL (30.0-36.0); MCV 90.1 FL (86-99); MEAN PLAT.VOLUME 8.9 uM^3 (9.0-12.4); PLATELET COUNT 222 K/uL (156-360); RBC DIS.WIDTH-CV 20.5 % (11.8-14.6); RBC DIS.WIDTH-SD 67.8 % (39-53); RED BLOOD COUNT 3.03 M/uL (4.00-5.50); WHITE BLOOD COUNT 7.9 K/uL (4.1-10.2)
[2017-06-23 06:53] LABS: ANION GAP 7 MEQ/L (2-14); CHLORIDE 108 MEQ/L (99-109); GFR ESTIMATE (CALCULATED) > 59 mL/min/; GLUCOSE 137 mg/dL (70-99); POTASSIUM 4.7 MEQ/L (3.7-5.4); SAMPLE HEMOLYSIS CHECK 0; SAMPLE ICTERIC CHECK 0; SAMPLE LIPEMIA CHECK 0; SODIUM 139 MEQ/L (136-147); UREA NITROGEN (BUN) 19 mg/dL (9-23)
[2017-06-23 08:17] VITALS: BP 176/474
[2017-06-23 08:25] LABS: INTERNAL CONTROL VALID? YES
[2017-06-23 08:58] VITALS: BP 176/74
[2017-06-23 17:04] VITALS: BP 147/68
[2017-06-24 00:18] VITALS: BP 152/69
[2017-06-24 07:17] VITALS: BP 150/78
[2017-06-24 09:14] LABS: HEMATOCRIT 26.8 % (38.0-50.0); MCH 28.1 PG (29.0-34.0); MCHC 31.7 G/DL (30.0-36.0); MCV 88.4 FL (86-99); MEAN PLAT.VOLUME 8.9 uM^3 (9.0-12.4); NRBC (%) 0.4 /100 WBC (0-0); PLATELET COUNT 235 K/uL (156-360); RBC DIS.WIDTH-CV 20.3 % (11.8-14.6); RBC DIS.WIDTH-SD 66.2 % (39-53); RED BLOOD COUNT 3.03 M/uL (4.00-5.50); WHITE BLOOD COUNT 6.7 K/uL (4.1-10.2)
[2017-06-24 09:53] LABS: EOSINOPHIL (%) 0 % (0-5); IMMATURE GRANULOCYTE (%) 0.7 % (0.0-0.7); IMMATURE GRANULOCYTE COUNT 0.1 K/uL; INSTRUMENT ABS NEUTROPHIL CT 5.3 K/uL; LYMPHOCYTE COUNT 0.7 K/uL (1.0-2.8); MONOCYTE (%) 8.8 % (3-12); MONOCYTE COUNT 0.6 K/uL (0-0.8); NEUTROPHIL (%) 79.4 % (45-76); NEUTROPHIL COUNT 5.3 K/uL (1.8-6.4)
[2017-06-24 10:58] VITALS: BP 130/60
[2017-06-24 16:13] VITALS: BP 168/78
[2017-06-24 23:44] VITALS: BP 131/62
[2017-06-25 06:12] LABS: EOSINOPHIL (%) 0.9 % (0-5); HEMATOCRIT 26.2 % (38.0-50.0); IMMATURE GRANULOCYTE (%) 0.7 % (0.0-0.7); INSTRUMENT ABS NEUTROPHIL CT 3.1 K/uL; LYMPHOCYTE COUNT 0.8 K/uL (1.0-2.8); MCH 26.3 PG (29.0-34.0); MCHC 30.2 G/DL (30.0-36.0); MCV 87.3 FL (86-99); MEAN PLAT.VOLUME 8.8 uM^3 (9.0-12.4); MONOCYTE (%) 10.8 % (3-12); MONOCYTE COUNT 0.5 K/uL (0-0.8); NEUTROPHIL (%) 68.8 % (45-76); NEUTROPHIL COUNT 3.1 K/uL (1.8-6.4); NRBC (%) 1.1 /100 WBC (0-0); PLATELET COUNT 244 K/uL (156-360); RBC DIS.WIDTH-CV 19.9 % (11.8-14.6); RBC DIS.WIDTH-SD 64.1 % (39-53); WHITE BLOOD COUNT 4.5 K/uL (4.1-10.2)
[2017-06-25 07:31] VITALS: BP 162/64
[2017-06-25 12:25] VITALS: BP 149/67
[2017-06-25] MEDS ORDERED: LOPRESSOR25 MG PO (13:54)
[2017-06-25 16:21] VITALS: BP 167/72
== END 2017-06-25 18:54 | DRG 871 ==
LOC: EME 15:29 → 5SOUTH 06-20 00:40 → EDOF 06-20 00:40 → ENRESERV 06-20 00:42 → 5SOUTH 06-20 03:02
PROVIDERS: Internal Medicine; Internal Medicine Cardiovascular Disease; Internal Medicine Gastroenterology; Nurse Practitioner Adult Health; Physician Assistant; Physician Assistant Medical
PROC: 009U3ZX Drainage of Spinal Canal, Percutaneous Approach, Diagnostic (ICD-10-PCS; principal; 2017-06-19)
DX: A41.81 Sepsis due to Enterococcus (principal); I33.0 Acute and subacute infective endocarditis; G00.9 Bacterial meningitis, unspecified; N17.9 Acute kidney failure, unspecified; E87.2 Acidosis; I11.0 Hypertensive heart disease with heart failure; I50.32 Chronic diastolic (congestive) heart failure; I48.1 Persistent atrial fibrillation; I27.81 Cor pulmonale (chronic); J44.9 Chronic obstructive pulmonary disease, unspecified; D50.0 Iron deficiency anemia secondary to blood loss (chronic); R19.5 Other fecal abnormalities; R73.9 Hyperglycemia, unspecified; I08.0 Rheumatic disorders of both mitral and aortic valves; K21.9 Gastro-esophageal reflux disease without esophagitis; E78.5 Hyperlipidemia, unspecified; I25.10 Atherosclerotic heart disease of native coronary artery without angina pectoris; M10.9 Gout, unspecified; M46.96 Unspecified inflammatory spondylopathy, lumbar region; G89.29 Other chronic pain; F17.200 Nicotine dependence, unspecified, uncomplicated; Z79.01 Long term (current) use of anticoagulants; Z79.82 Long term (current) use of aspirin; Z85.72 Personal history of non-Hodgkin lymphomas; Z85.810 Personal history of malignant neoplasm of tongue; Z87.11 Personal history of peptic ulcer disease; I25.2 Old myocardial infarction
CPT/HCPCS: 70450; 71010; 71020; 72131; 72158; 74177; 80048; 80053; 80202; 80306 90; 81003; 82272; 82565; 82945; 83605; 84157; 84520; 84550; 85014; 85018; 85025; 85027; 85651; 86140; 87040; 87070; 87077; 87186; 87205; 87502; 87529 90; 87801; 89051; 93005; 93312; 94640; 94640 76; 94799; 99202; 99281; 99285; J0133; J0290; J0696; J1100; J1644; J2270; J3370; J7030; J7050; S0028

== ENCOUNTER 2017-07-22 09:13 | Inpatient (IN) | payer OTHER ==
[~2017-07-22] VITALS: Ht 182.9 cm; Wt 93.7 kg
[~2017-07-22 09:13] MED LIST changes: +LOPRESSOR25 MG PO; +OMEPRAZOLE20 MG PO; -PROTONIX40 MG PO
[2017-07-22 10:38] LABS: BASOPHIL (%) 0.2 % (0-1); EOSINOPHIL (%) 0 % (0-5); HEMATOCRIT 30.8 % (38.0-50.0); HEMOGLOBIN 9.6 G/DL (12.5-16.6); IMMATURE GRANULOCYTE (%) 0.2 % (0.0-0.7); LYMPHOCYTE (%) 12.6 % (15-42); LYMPHOCYTE COUNT 1.5 K/uL (1.0-2.8); MCH 26.9 PG (29.0-34.0); MCHC 31.2 G/DL (30.0-36.0); MCV 86.3 FL (86-99); MONOCYTE (%) 12.3 % (3-12); MONOCYTE COUNT 1.4 K/uL (0-0.8); NEUTROPHIL (%) 74.7 % (45-76); NEUTROPHIL COUNT 8.7 K/uL (1.8-6.4); PLATELET COUNT 255 K/uL (156-360); RBC DIS.WIDTH-CV 20.1 % (11.8-14.6); RBC DIS.WIDTH-SD 63.2 % (39-53); RED BLOOD COUNT 3.57 M/uL (4.00-5.50); WHITE BLOOD COUNT 11.6 K/uL (4.1-10.2)
[2017-07-22 10:44] LABS: INTER. NORMALIZED RATIO 1.3
[2017-07-22 10:46] LABS: PTT 23.1 SEC (25-37)
[2017-07-22 10:47] LABS: CHLORIDE 96 mEq/L (99-109); POTASSIUM 3.7 mEq/L (3.7-5.4); SODIUM 131 mEq/L (136-147)
[2017-07-22 10:49] LABS: GLUCOSE 129 mg/dL (70-99)
[2017-07-22 10:50] LABS: TOTAL PROTEIN 6.2 g/dL (6.4-8.3)
[2017-07-22 10:51] LABS: TOTAL BILIRUBIN 0.7 mg/dL (0.0-1.0)
[2017-07-22 10:53] LABS: ALKALINE PHOSPHATASE 79 IU/L (3-129); GFR ESTIMATE (CALCULATED) > 59 mL/min/ (58.99-99999)
[2017-07-22 10:54] LABS: UREA NITROGEN (BUN) 15 mg/dL (9-23)
[2017-07-22 10:55] LABS: AST (GOT) 15 IU/L (2-34); DIRECT BILIRUBIN 0.4 mg/dL (0.0-0.3)
[2017-07-22 10:56] LABS: ALT (GPT) 7 IU/L (3-49); LIPASE 19 U/L (1.0-51.0)
[2017-07-22 11:00] LABS: TROP-I INTERPRETATION NEGATIVE; TROPONIN-I < 0.01 ng/mL (0.0-0.30)
[2017-07-22] MEDS ORDERED: FERROUS SULFAT325 MG PO (13:42)
[2017-07-22] MEDS ORDERED: METOPROLOL TART25 MG PO (13:43)
[2017-07-22] MEDS ORDERED: AMPICILLIN SODIU2 GM IV (13:45)
[2017-07-22] MEDS ORDERED: DULCOLAX10 MG PR (13:46)
[2017-07-22] MEDS ORDERED: MIRALAX17 GM PO (13:47)
[2017-07-22] MEDS ORDERED: MILK OF MAGN PO (13:47)
[2017-07-22] MEDS ORDERED: PERCOCET 5/31 TABLET PO (13:48)
[2017-07-22 15:20] LABS: APPEARANCE CLEAR ((CLEAR)); BILIRUBIN NEGATIVE; BLOOD NEGATIVE; COLOR YELLOW ((YELLOW)); GLUCOSE (STRIP) NEGATIVE; KETONES NEGATIVE; LEUKOCYTES NEGATIVE; NITRITE NEGATIVE; PROTEIN (STRIP) NEGATIVE; UCUL ADDED? NO
[2017-07-22 15:57] VITALS: BP 176/73
[2017-07-22 19:45] VITALS: BP 135/64
[2017-07-23] VITALS (7 sets, daily range): BP systolic 105–183; BP diastolic 50–78
[2017-07-23 06:31] LABS: HEMATOCRIT 30.9 % (38.0-50.0); HEMOGLOBIN 9.3 G/DL (12.5-16.6); MCH 26.6 PG (29.0-34.0); MCHC 30.1 G/DL (30.0-36.0); MCV 88.3 FL (86-99); PLATELET COUNT 232 K/uL (156-360); RBC DIS.WIDTH-CV 19.7 % (11.8-14.6); RBC DIS.WIDTH-SD 63.5 % (39-53); WHITE BLOOD COUNT 9.9 K/uL (4.1-10.2)
[2017-07-23 07:26] LABS: CHLORIDE 99 MEQ/L (99-109); CREATININE 0.8 MG/DL (0.6-1.3); GFR ESTIMATE (CALCULATED) > 59 mL/min/ (58.99-99999); SODIUM 135 MEQ/L (136-147); UREA NITROGEN (BUN) 11 mg/dL (9-23)
[2017-07-23 07:41] LABS: GLUCOSE 90 mg/dL (70-99)
[2017-07-24 04:00] VITALS: BP 132/61
[2017-07-24 07:50] VITALS: BP 156/70
[2017-07-24 11:46] VITALS: BP 111/58
[2017-07-24 16:00] VITALS: BP 109/55
[2017-07-24 19:55] VITALS: BP 111/56
[2017-07-24 23:42] VITALS: BP 112/58
[2017-07-25 03:08] VITALS: BP 118/62
[2017-07-25 03:10] VITALS: BP 118/62
[2017-07-25 07:17] VITALS: BP 117/55
[2017-07-25 07:22] LABS: HEMATOCRIT 29.8 % (38.0-50.0); HEMOGLOBIN 8.9 G/DL (12.5-16.6); MCH 26.2 PG (29.0-34.0); MCHC 29.9 G/DL (30.0-36.0); MCV 87.6 FL (86-99); PLATELET COUNT 230 K/uL (156-360); RBC DIS.WIDTH-CV 18.7 % (11.8-14.6); RBC DIS.WIDTH-SD 60.3 % (39-53); WHITE BLOOD COUNT 8.1 K/uL (4.1-10.2)
[2017-07-25 07:48] LABS: CHLORIDE 104 MEQ/L (99-109); CREATININE 1.1 MG/DL (0.6-1.3); GFR ESTIMATE (CALCULATED) > 59 mL/min/ (58.99-99999); GLUCOSE 106 mg/dL (70-99); SODIUM 139 MEQ/L (136-147)
[2017-07-25 07:49] LABS: UREA NITROGEN (BUN) 25 mg/dL (9-23)
[2017-07-25 11:02] VITALS: BP 121/56
[2017-07-25 15:04] VITALS: BP 123/60
[2017-07-26] VITALS (10 sets, daily range): BP systolic 92–143; BP diastolic 50–69
[2017-07-26 14:05] LABS: HEMATOCRIT 27.1 % (38.0-50.0); HEMOGLOBIN 8.3 G/DL (12.5-16.6); MCV 87.4 FL (86-99)
[2017-07-27] VITALS (8 sets, daily range): BP systolic 112–169; BP diastolic 54–73
[2017-07-27 02:59] LABS: HEMATOCRIT 24.5 % (38.0-50.0); HEMOGLOBIN 7.8 G/DL (12.5-16.6)
[2017-07-27 06:45] LABS: HEMATOCRIT 24.3 % (38.0-50.0); HEMOGLOBIN 7.6 G/DL (12.5-16.6); MCH 26.9 PG (29.0-34.0); MCHC 31.3 G/DL (30.0-36.0); MCV 85.9 FL (86-99); PLATELET COUNT 246 K/uL (156-360); RBC DIS.WIDTH-CV 17.2 % (11.8-14.6); RED BLOOD COUNT 2.83 M/uL (4.00-5.50); WHITE BLOOD COUNT 7.5 K/uL (4.1-10.2)
[2017-07-27 07:12] LABS: CHLORIDE 108 MEQ/L (99-109); CREATININE 0.9 MG/DL (0.6-1.3); GFR ESTIMATE (CALCULATED) > 59 mL/min/ (58.99-99999); GLUCOSE 93 mg/dL (70-99); POTASSIUM 3.5 MEQ/L (3.7-5.4); SODIUM 143 MEQ/L (136-147); UREA NITROGEN (BUN) 14 mg/dL (9-23)
[2017-07-27 13:34] LABS: HEMATOCRIT 27.4 % (38.0-50.0); HEMOGLOBIN 8.7 G/DL (12.5-16.6); MCV 86.7 FL (86-99)
[2017-07-27 19:20] LABS: HEMATOCRIT 26.5 % (38.0-50.0); HEMOGLOBIN 8.3 G/DL (12.5-16.6); MCV 86.6 FL (86-99)
[2017-07-27 23:07] LABS: HEMATOCRIT 27.2 % (38.0-50.0); HEMOGLOBIN 8.9 G/DL (12.5-16.6); MCV 85.5 FL (86-99)
[2017-07-28] VITALS (19 sets, daily range): BP systolic 95–154; BP diastolic 44–64
[2017-07-28 04:46] LABS: HEMATOCRIT 19.3 % (38.0-50.0); MCH 27.9 PG (29.0-34.0); MCHC 32.1 G/DL (30.0-36.0); MCV 86.9 FL (86-99); PLATELET COUNT 247 K/uL (156-360); RBC DIS.WIDTH-CV 16.9 % (11.8-14.6); RBC DIS.WIDTH-SD 53.1 % (39-53); WHITE BLOOD COUNT 8.8 K/uL (4.1-10.2)
[2017-07-28 04:47] LABS: HEMOGLOBIN 6.2 G/DL (12.5-16.6); RED BLOOD COUNT 2.22 M/uL (4.00-5.50)
[2017-07-28 12:29] LABS: HEMOGLOBIN 8.1 G/DL (12.5-16.6); MCV 86.5 FL (86-99)
[2017-07-28 12:30] LABS: INTER. NORMALIZED RATIO 1.3
[2017-07-28 16:57] LABS: HEMATOCRIT 22.2 % (38.0-50.0); HEMOGLOBIN 7.4 G/DL (12.5-16.6); MCV 86.7 FL (86-99)
[2017-07-28 23:55] LABS: HEMATOCRIT 19.9 % (38.0-50.0); HEMOGLOBIN 6.6 G/DL (12.5-16.6); MCV 86.1 FL (86-99)
[2017-07-29] VITALS (19 sets, daily range): BP systolic 101–165; BP diastolic 38–73
[2017-07-29 11:57] LABS: BASOPHIL (%) 0.2 % (0-1); EOSINOPHIL (%) 1.5 % (0-5); EOSINOPHIL COUNT 0.2 K/uL (0-0.3); HEMATOCRIT 22.4 % (38.0-50.0); HEMOGLOBIN 7.5 G/DL (12.5-16.6); IMMATURE GRANULOCYTE (%) 1.7 % (0.0-0.7); LYMPHOCYTE COUNT 2.1 K/uL (1.0-2.8); MCH 29.2 PG (29.0-34.0); MCHC 33.5 G/DL (30.0-36.0); MCV 87.2 FL (86-99); MONOCYTE (%) 10.4 % (3-12); NEUTROPHIL (%) 65.2 % (45-76); NEUTROPHIL COUNT 6.5 K/uL (1.8-6.4); NRBC (%) 0.3 /100 WBC (0-0); PLATELET COUNT 253 K/uL (156-360); RBC DIS.WIDTH-CV 15.5 % (11.8-14.6); RBC DIS.WIDTH-SD 48.2 % (39-53); RED BLOOD COUNT 2.57 M/uL (4.00-5.50)
[2017-07-29 12:04] LABS: ALBUMIN 2.1 g/dL (3.2-4.8); CHLORIDE 108 mEq/L (99-109); POTASSIUM 3.7 mEq/L (3.7-5.4); SODIUM 139 mEq/L (136-147)
[2017-07-29 12:06] LABS: GLUCOSE 108 mg/dL (70-99)
[2017-07-29 12:07] LABS: TOTAL PROTEIN 3.7 g/dL (6.4-8.3)
[2017-07-29 12:08] LABS: TOTAL BILIRUBIN 0.4 mg/dL (0.0-1.0)
[2017-07-29 12:10] LABS: ALKALINE PHOSPHATASE 46 IU/L (3-129); CREATININE 0.8 mg/dL (0.6-1.3); GFR ESTIMATE (CALCULATED) > 59 mL/min/ (58.99-99999)
[2017-07-29 12:11] LABS: UREA NITROGEN (BUN) 9 mg/dL (9-23)
[2017-07-29 12:12] LABS: AST (GOT) 11 IU/L (2-34)
[2017-07-29 12:13] LABS: ALT (GPT) 9 IU/L (3-49)
[2017-07-30 00:38] LABS: BASOPHIL (%) 0.3 % (0-1); EOSINOPHIL (%) 3.3 % (0-5); EOSINOPHIL COUNT 0.3 K/uL (0-0.3); HEMATOCRIT 27.2 % (38.0-50.0); HEMOGLOBIN 9.1 G/DL (12.5-16.6); IMMATURE GRANULOCYTE (%) 2.5 % (0.0-0.7); LYMPHOCYTE (%) 19.6 % (15-42); LYMPHOCYTE COUNT 1.9 K/uL (1.0-2.8); MCH 28.8 PG (29.0-34.0); MCHC 33.5 G/DL (30.0-36.0); MCV 86.1 FL (86-99); MONOCYTE COUNT 1.1 K/uL (0-0.8); NEUTROPHIL (%) 62.3 % (45-76); NEUTROPHIL COUNT 5.9 K/uL (1.8-6.4); NRBC (%) 0.7 /100 WBC (0-0); PLATELET COUNT 280 K/uL (156-360); RBC DIS.WIDTH-CV 16.8 % (11.8-14.6); RBC DIS.WIDTH-SD 51.2 % (39-53); WHITE BLOOD COUNT 9.4 K/uL (4.1-10.2)
[2017-07-30 00:41] LABS: RED BLOOD COUNT 3.16 M/uL (4.00-5.50)
== END 2017-07-30 01:08 | disposition short-term general hospital (02) | DRG 871 ==
LOC: EME 09:13 → EDOF 12:33 → 5SOUTH 12:33 → 4EAST 12:33 → ENRESERV 12:44 → 5SOUTH 15:22 → ENRESERV 07-27 22:55 → 4WEST 07-27 23:07 → ENRESERV 07-28 20:48 → 4EAST 07-28 22:41
PROVIDERS: Emergency Medicine; Family Medicine; Hospitalist; Internal Medicine Gastroenterology
PROC: 30233P1 Transfusion of Nonautologous Frozen Red Cells into Peripheral Vein, Percutaneous Approach (ICD-10-PCS; principal; 2017-07-26)
PROC: 0R9P3ZX Drainage of Left Wrist Joint, Percutaneous Approach, Diagnostic (ICD-10-PCS; 2017-07-27)
PROC: 0DBP8ZX Excision of Rectum, Via Natural or Artificial Opening Endoscopic, Diagnostic (ICD-10-PCS; 2017-07-27)
PROC: 0D568ZZ Destruction of Stomach, Via Natural or Artificial Opening Endoscopic (ICD-10-PCS; 2017-07-27)
DX: A41.9 Sepsis, unspecified organism (principal); K57.31 Diverticulosis of large intestine without perforation or abscess with bleeding; D62 Acute posthemorrhagic anemia; E87.1 Hypo-osmolality and hyponatremia; E78.5 Hyperlipidemia, unspecified; G89.29 Other chronic pain; I48.0 Paroxysmal atrial fibrillation; I11.0 Hypertensive heart disease with heart failure; I50.32 Chronic diastolic (congestive) heart failure; K21.9 Gastro-esophageal reflux disease without esophagitis; J44.9 Chronic obstructive pulmonary disease, unspecified; Z87.891 Personal history of nicotine dependence; I33.0 Acute and subacute infective endocarditis; B95.2 Enterococcus as the cause of diseases classified elsewhere; M51.27 Other intervertebral disc displacement, lumbosacral region; M25.432 Effusion, left wrist; I25.10 Atherosclerotic heart disease of native coronary artery without angina pectoris; K31.819 Angiodysplasia of stomach and duodenum without bleeding; K62.6 Ulcer of anus and rectum; M10.032 Idiopathic gout, left wrist
CPT/HCPCS: 71010; 72158; 73110; 78278; 80048; 80053; 80202; 81003; 82248; 82948; 83605; 83690; 84100; 84484; 85014; 85018; 85025; 85025 91; 85027; 85610; 85651; 85730; 86140; 86850; 86900; 86901; 86920; 87040; 87070; 87075; 87205; 87641; 88305; 89060; 93005; 93306; 94760; 94799; 99202; 99281; 99285; A6214; A9512; A9560; C9113; J0290; J1170; J1644; J1940; J2270; J2543; J2997; J3260; J3370; J7030; J7050; P9016; P9040

== ENCOUNTER 2017-09-17 15:04 | Emergency (ER) | payer OTHER ==
[~2017-09-17] VITALS: Ht 182.9 cm; Wt 85.0 kg
[~2017-09-17 15:04] MED LIST changes: +AMPICILLIN SODIU2 GM IV; +DULCOLAX10 MG PR; +METOPROLOL TART25 MG PO; +MILK OF MAGN PO; +MIRALAX17 GM PO; +PERCOCET 5/31 TABLET PO
[2017-09-17 16:13] LABS: CHLORIDE 108 mEq/L (99-109); POTASSIUM 4.4 mEq/L (3.7-5.4); SODIUM 142 mEq/L (136-147)
[2017-09-17 16:15] LABS: GLUCOSE 123 mg/dL (70-99)
[2017-09-17 16:19] LABS: CREATININE 1.6 mg/dL (0.6-1.3); GFR ESTIMATE (CALCULATED) 45 mL/min/ (58.99-99999)
[2017-09-17 16:20] LABS: UREA NITROGEN (BUN) 25 mg/dL (9-23)
[2017-09-17 16:26] LABS: HEMATOCRIT 34.5 % (38.0-50.0); HEMOGLOBIN 10.7 G/DL (12.5-16.6); MCH 25.4 PG (29.0-34.0); MCV 81.9 FL (86-99); RBC DIS.WIDTH-CV 18.6 % (11.8-14.6); RBC DIS.WIDTH-SD 55.7 % (39-53); RED BLOOD COUNT 4.21 M/uL (4.00-5.50); TROP-I INTERPRETATION NEGATIVE; TROPONIN-I 0.02 ng/mL (0.0-0.30); WHITE BLOOD COUNT 5.6 K/uL (4.1-10.2)
[2017-09-17 17:22] LABS: PLATELET COUNT 185 K/uL (156-360)
[2017-09-17 19:32] VITALS: BP 177/82
== END 2017-09-17 19:47 | disposition home or self-care (01) ==
LOC: EME 15:04
PROVIDERS: Nurse Practitioner Family
DX: I50.9 Heart failure, unspecified (principal); J44.9 Chronic obstructive pulmonary disease, unspecified; M54.9 Dorsalgia, unspecified; I11.0 Hypertensive heart disease with heart failure; I48.91 Unspecified atrial fibrillation; J90 Pleural effusion, not elsewhere classified; I25.2 Old myocardial infarction; Z85.819 Personal history of malignant neoplasm of unspecified site of lip, oral cavity, and pharynx; Z85.72 Personal history of non-Hodgkin lymphomas; Z87.891 Personal history of nicotine dependence
CPT/HCPCS: 71046; 71275; 80048; 83880; 84484; 85027; 93005; 94640; 99281; 99285